=== PATIENT | female | born 1990 | race Caucasian/White ===

== ENCOUNTER 2020-01-10 13:20 | Emergency (ER) | payer OTHER ==
[2020-01-10] MEDS ORDERED: Ibuprofen 800 MG TAB ONE (13:51)
[2020-01-10] MEDS ORDERED: Ondansetron ODT 4 MG TAB ONE (13:51)
[2020-01-10 14:31] LABS: Pregnancy Test - Urine (BHCG) Negative (Negative); Pregu Control Background? CLEAR/WHITE (CLR/WHITE); Pregu Control Bar Appear? YES (CONTROL BAR); Specific Gravity 1.028 (1.002-1.036)
--- NOTE | 2020-01-10 14:43 | RAD ---
EXAM: Chest 2 views: HISTORY: Cough and fever COMPARISON: 05/25/2013 FINDINGS: There is a normal-sized cardiomediastinal silhouette. Subtle opacity is seen in the left thorax which could represent an early infiltrate. The bones are unremarkable. IMPRESSION: Possible early left pulmonary infiltrate
== END 2020-01-10 15:08 | disposition home or self-care (01) ==
LOC: NAV ERS 13:20
DX: J18.9 Pneumonia, unspecified organism (principal); R11.0 Nausea; F31.9 Bipolar disorder, unspecified; F98.8 Other specified behavioral and emotional disorders with onset usually occurring in childhood and adolescence; Z79.899 Other long term (current) drug therapy
CPT/HCPCS: 71046; 81025; 87804; Q0162